=== PATIENT | male | born 1975 | race African-American/Black ===

== ENCOUNTER 2022-07-12 13:17 | Emergency (ER) | payer OTHER ==
[~2022-07-12] VITALS: Ht 172.7 cm; Wt 70.8 kg
[2022-07-12] MEDS ORDERED: BIKTARVY 50-201 EACH PO (13:41)
== END 2022-07-12 22:14 | disposition left against medical advice (07) ==
LOC: ER 13:17
DX: S79.911A Unspecified injury of right hip, initial encounter (principal); W19.XXXA Unspecified fall, initial encounter; Y93.9 Activity, unspecified; Y92.9 Unspecified place or not applicable; S49.91XA Unspecified injury of right shoulder and upper arm, initial encounter; Z88.6 Allergy status to analgesic agent; K80.20 Calculus of gallbladder without cholecystitis without obstruction